=== PATIENT | female | born 1995 | race Two or more races ===

== ENCOUNTER 2019-05-30 05:49 | Emergency (ER) | payer BC ==
[2019-05-30] MEDS ORDERED: ACETAMINOPHEN 325 MG TABLET PO ONE (06:45)
--- NOTE | 2019-05-30 08:24 | ER Document Report ---
HPI - HPI Patient complains to provider of: Flu symptoms Time Seen by Provider: 05/30/19 08:09 Onset: This morning Onset/Duration: Gradual Quality of pain: Achy Pain Level: 4 Context: Patient presents complaining of flulike symptoms that started this morning. Patient reports cough congestion sore throat. Patient reports fever of 100.4 at home today. Associated Symptoms: Nonproductive cough, Fever, Rhinnorhea, Sore throat Exacerbated by: Denies Relieved by: Denies Similar symptoms previously: No Recently seen / treated by doctor: No - ROS ROS below otherwise negative: Yes Systems Reviewed and Negative: Yes All other systems reviewed and negative - CONSTITUTIONAL Constitutional: REPORTS: Fever - EENT EENT: REPORTS: Sore Throat, Nasal Drainage-Clear, Congestion - CARDIOVASCULAR Cardiovascular: DENIES: Chest pain - RESPIRATORY Respiratory: REPORTS: Coughing - GASTROINTESTINAL Gastrointestinal: DENIES: Nausea, Patient vomiting, Diarrhea - DERM Skin Color: Normal Skin Problems: None Past Medical History - General Information source: Patient - Social History Smoking Status: Never Smoker Frequency of alcohol use: Rare Occupation: Retail Family History: Reviewed & Not Pertinent Patient has suicidal ideation: No Patient has homicidal ideation: No - Medical History Medical History: Other - Thalassemia Past Surgical History: Reports: Hx Tonsillectomy Vertical Provider Document - CONSTITUTIONAL Agree With Documented VS: Yes Exam Limitations: No Limitations General Appearance: WD/WN, No Apparent Distress - INFECTION CONTROL TRAVEL OUTSIDE OF THE [place] IN LAST 30 DAYS: No - HEENT HEENT: Atraumatic, Normocephalic. negative: Pharyngeal Exudate, Pharyngeal Tenderness, Pharyngeal Erythema, Tympanic Membrane Red, Tympanic Membrane Bulging Notes: clear rhinorrhea - NECK Neck: Normal Inspection, Supple. negative: Lymphadenopathy-Left, Lymphadenopathy-Right - RESPIRATORY Respiratory: Breath Sounds Normal, No Respiratory Distress, Chest Non-Tender - CARDIOVASCULAR Cardiovascular: Regular Rate, Regular Rhythm, No Murmur. negative: Tachycardia - GI/ABDOMEN Gastrointestinal: Abdomen Soft, Abdomen Non-Tender - BACK Back: Normal Inspection. negative: CVA Tenderness-Right, CVA Tenderness-Left - MUSCULOSKELETAL/EXTREMETIES Musculoskeletal/Extremeties: MAEW - NEURO Level of Consciousness: Awake, Alert, Appropriate Motor/Sensory: No Motor Deficit - DERM Integumentary: Warm, Dry, No Rash Course - Re-evaluation Re-evalutation: 05/30/19 08:22 Patient presents with flulike symptoms at this time. Patient agreeable with deferring any testing at this time. Patient would like prescription for Tamiflu. Discussed efficacy and side effect profile this medication. Good return precautions discussed - Vital Signs Vital signs: Temp Pulse Resp BP Pulse Ox 98.4 F 119 H 16 114/69 100 05/30/19 07:55 05/30/19 06:12 05/30/19 06:12 05/30/19 06:12 05/30/19 06:12 Discharge - Discharge Clinical Impression: Flu-like symptoms Condition: Stable Disposition: HOME, SELF-CARE Instructions: Acetaminophen, Influenza ([facility]) Additional Instructions: Return immediately for any new or worsening symptoms Followup with your primary care provider, call tomorrow to make a followup appointment Prescriptions: Guaifenesin/Pseudoephedrne HCl [Mucinex D ER 1,200-120 mg Tab] 1 each PO Q12 PRN #12 tab.er.12h PRN Reason: Naproxen [Naprosyn 250 Nmg Tablet] 1 tab PO BID #14 tablet Oseltamivir Phosphate [Tamiflu 75 mg Capsule] 75 mg PO BID #10 capsule Forms: Return to Work Referrals: [facility] [Provider Group] - Follow up as needed
[2019-05-30 08:34] VITALS: BP 105/61
== END 2019-05-30 08:34 | disposition home or self-care (01) ==
LOC: ER 05:49
DX: R05 Cough (principal); J02.9 Acute pharyngitis, unspecified; J34.89 Other specified disorders of nose and nasal sinuses; R50.9 Fever, unspecified
CPT/HCPCS: 99283

== ENCOUNTER 2019-07-18 19:42 | Emergency (ER) | payer BC ==
--- NOTE | 2019-07-18 20:47 | ER Document Report ---
ED Medical Screen (RME) - General Chief Complaint: Vomiting Stated Complaint: VOMITING Time Seen by Provider: 07/18/19 20:43 Mode of Arrival: Ambulatory Information source: Patient Notes: 23-year-old female presents to ED for complaint of low back pain with sciatica down the left for about 2 weeks. She states the nausea and vomiting since morning. Last menstrual cycle started Thursday. She drinks socially no drugs no cigarette. Patient is alert oriented respirations regular nonlabored speaking in full sentences. She has been taking ibuprofen for her sciatica her last dose was 3 days ago. Patient is alert oriented respirations regular nonlabored speaking in full sentences. I have greeted and performed a rapid initial assessment of this patient. A comprehensive ED assessment and evaluation of the patient, analysis of test results and completion of medical decision making process will be conducted by an additional ED providers. TRAVEL OUTSIDE OF THE [place] IN LAST 30 DAYS: No - Related Data Allergies/Adverse Reactions: No Known Allergies Allergy (Verified 05/30/19 06:45) Past Medical History Past Surgical History: Reports: Hx Tonsillectomy Physical Exam - Vital signs Vitals: Temp Pulse Resp BP Pulse Ox 98.9 F 113 H 20 117/61 100 07/18/19 19:49 07/18/19 19:49 07/18/19 19:49 07/18/19 19:49 07/18/19 19:49 Course - Vital Signs Vital signs: Temp Pulse Resp BP Pulse Ox 98.9 F 113 H 20 117/61 100 07/18/19 19:49 07/18/19 19:49 07/18/19 19:49 07/18/19 19:49 07/18/19 19:49
[2019-07-18] MEDS ORDERED: ONDANSETRON 4 MG TAB.RAPDIS PO ONE (20:48)
[2019-07-18] MEDS ORDERED: NORMAL SALINE 1000 ML 1,000 ML IV ONE (20:48)
[2019-07-18 21:27] LABS: HEMATOCRIT 33.8 % (36.0-47.0); HEMOGLOBIN 11.1 g/dL (12.0-15.5); MEAN CORPUSCULAR HEMOGLOBIN 20.9 pg (27.0-33.4); MEAN CORPUSCULAR HGB CONC 32.7 g/dL (32.0-36.0); PLATELET COUNT 372 10^3/uL (150-450); RED BLOOD COUNT 5.29 10^6/uL (3.72-5.28); RED CELL DISTRIBUTION WIDTH 16.3 % (11.5-14.0); WHITE BLOOD COUNT 11.5 10^3/uL (4.0-10.5)
[2019-07-18 21:35] LABS: APPEARANCE,URINE SLIGHTLY-CLOUDY; BILIRUBIN,URINE NEGATIVE (NEGATIVE); COLOR,URINE YELLOW; GLUCOSE, URINE NEGATIVE (NEGATIVE); KETONES,URINE 20 mg/dL (NEGATIVE); PROTEIN,URINE NEGATIVE (NEGATIVE); URINE SPECIFIC GRAVITY 1.025; UROBILINOGEN,URINE NEGATIVE mg/dL (<2.0)
[2019-07-18 21:40] LABS: ALBUMIN 4.6 g/dL (3.5-5.0); ALKALINE PHOSPHATASE 72 U/L (38-126); ANION GAP 10 (5-19); ASPARTATE AMINO TRANSFERASE 25 U/L (14-36); BILIRUBIN,TOTAL 1.7 mg/dL (0.2-1.3); BLOOD UREA NITROGEN 12 mg/dL (7-20); CARBON DIOXIDE 24 mmol/L (22-30); CHLORIDE 100 mmol/L (98-107); GLUCOSE 109 mg/dL (75-110); TOTAL PROTEIN 7.8 g/dL (6.3-8.2)
[2019-07-18 21:47] LABS: MEAN CORPUSCULAR VOLUME 64 fl (80-97)
[2019-07-18 21:49] LABS: ABSOLUTE LYMPHOCYTES# (MANUAL) 0.6 10^3/uL (0.5-4.7); BASOPHILS % (MANUAL) 0 % (0-2); EOSINOPHILS % (MANUAL) 0 % (0-6); LYMPHOCYTES % (MANUAL) 5 % (13-45); MONOCYTES % (MANUAL) 0 % (3-13); SEGMENTED NEUTROPHILS % (MAN) 95 % (42-78); TOTAL CELLS COUNTED 100
[2019-07-18 21:54] LABS: TOXIC GRANULATION 1+
[2019-07-18 21:55] LABS: ANISOCYTOSIS 1+; HYPOCHROMASIA 1+; OVALOCYTES 1+; PLATELET COMMENT ADEQUATE; POIKILOCYTOSIS 2+; SCHISTOCYTES SLIGHT; TARGET CELLS SLIGHT; TEAR DROP CELLS SLIGHT
--- NOTE | 2019-07-18 23:14 | ER Document Report ---
ED GI/ - General Chief Complaint: Vomiting Stated Complaint: VOMITING Time Seen by Provider: 07/18/19 20:43 Mode of Arrival: Ambulatory Notes: CHIEF COMPLAINT: Abdominal pain nausea vomiting as well as sciatica HPI: 23-year-old female presenting to the emergency department with multiple complaints. Patient states that she has had sciatic symptoms down the left leg for 2 weeks. 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 States the pain seems to start in the left gluteal region and radiates down the lateral left thigh to the level of the knee occasional numbness and tingling. No incontinence of urine or bowel. No definitive injury but states that she is constantly moving in the gym so she may have hurt something in the back. Patient states that today she developed abdominal pain with nausea vomiting and diarrhea. No fever. No dysuria. St ates the pain seems to be around the umbilicus. Had 6 or 7 episodes of vomiting 2 or 3 episodes of diarrhea. ROS: See HPI - all other systems were reviewed and are otherwise negative Constitutional: no fever Eyes: no drainage, no blurred vision ENT: no runny nose, no sore throat Cardiovascular: no chest pain Resp: no SOB, no cough GI: Positive vomiting, positive diarrhea, positive abdominal pain : no dysuria Integumentary: no rash Allergy: no hives Musculoskeletal: no extremity pain or swelling, positive back pain Neurological: no numbness/tingling, no weakness MEDICATIONS: I agree with the patient medications as charted by the RN. ALLERGIES: I agree with the allergies as charted by the RN. PAST MEDICAL HISTORY/PAST SURGICAL HISTORY: Reviewed and agree as charted by RN. SOCIAL HISTORY: Reviewed and agree as charted by RN. FAMILY HISTORY: No significant familial comorbid conditions directly related to patient complaint EXAM: Reviewed vital signs as charted by RN. CONSTITUTIONAL: Alert and oriented and responds appropriately to questions. Well-appearing; well-nourished, mild distress secondary to discomfort HEAD: Normocephalic; atraumatic EYES: PERRL; Conjunctivae clear, sclerae non-icteric ENT: normal nose; no rhinorrhea; moist mucous membranes; pharynx without lesions noted, no uvula edema or deviation, no tonsillar hypertrophy, phonation normal NECK: Supple without meningismus; non-tender; no cervical lymphadenopathy, no masses CARD: RRR; no murmurs, no clicks, no rubs, no gallops; symmetric distal pulses RESP: Normal chest excursion without splinting or tachypnea; breath sounds clear and equal bilaterally; no wheezes, no rhonchi, no rales, pulse oximetry 98% on room air not hypoxic ABD/GI: Normal bowel sounds; non-distended; soft, mild tenderness in the right upper quadrant on palpation. There is mild tenderness in the right lower and left lower quadrants on palpation but it is more focal in the right periumbilical region, no rebound, no guarding; no palpable organomegaly or masses. BACK: The back appears normal and is non-tender to palpation, there is no CVA tenderness EXT: Normal ROM in all joints; non-tender to palpation; no cyanosis, no ef fusions, no edema SKIN: Normal color for age and race; warm; dry; good turgor; no acute lesions n oted NEURO: Moves all extremities equally; Motor and sensory function intact PSYCH: The patient's mood and manner are appropriate. Grooming and personal hygiene are appropriate. MDM: 23-year-old female with sciatic symptoms for 2 weeks. No definitive back injury. Patient has had nausea vomiting diarrhea with abdominal pain today. She does have pain in the right lower quadrant, has no history of abdominal surgeries. Has mild leukocytosis of 11.5. Will obtain CT to evaluate for appendicitis. TRAVEL OUTSIDE OF THE [place] IN LAST 30 DAYS: No - Related Data Allergies/Adverse Reactions: No Known Allergies Allergy (Verified 07/18/19 20:45) Home Medications: denies Past Medical History - General Information source: Patient - Social History Smoking Status: Never Smoker Chew tobacco use (# tins/day): No Frequency of alcohol use: Social Drug Abuse: None Family History: Reviewed & Not Pertinent Patient has suicidal ideation: No Patient has homicidal ideation: No Past Surgical History: Reports: Hx Tonsillectomy Physical Exam - Vital signs Vitals: Temp Pulse Resp BP Pulse Ox 98.9 F 113 H 20 117/61 100 07/18/19 19:49 07/18/19 19:49 07/18/19 19:49 07/18/19 19:49 07/18/19 19:49 Course - Re-evaluation Re-evalutation: 07/19/19 03:00 CT imaging does not show acute emergent abnormalities likely a viral process plus sciatica. Will give patient a dose of Decadron through the IV given her nausea issues. Will discharge on Zofran, prednisone, orthopedic referral - Vital Signs Vital signs: Temp Pulse Resp BP Pulse Ox 99.9 F 110 H 18 119/66 98 07/18/19 21:49 07/18/19 21:49 07/18/19 21:49 07/18/19 21:49 07/18/19 21:49 - Laboratory Result Diagrams: 07/18/19 20:53 07/18/19 20:53 Laboratory results interpreted by me: 07/18/19 07/18/19 07/18/19 20:28 20:53 20:53 WBC 11.5 H RBC 5.29 H Hgb 11.1 L Hct 33.8 L MCV 64 L MCH 20.9 L RDW 16.3 H Seg Neuts % (Manual) 95 H Lymphocytes % (Manual) 5 L Monocytes % (Manual) 0 L Abs Neuts (Manual) 10.9 H Abs Monocytes (Manual) 0.0 L Sodium 134.1 L Total Bilirubin 1.7 H Urine Ketones 20 H Urine Blood LARGE H Discharge - Discharge Clinical Impression: Vomiting and diarrhea, Sciatica, left side Condition: Stable Disposition: HOME, SELF-CARE Instructions: Sciatica ([facility]), Vomiting ([facility]) Additional Instructions: Hydrate well at home. Take prednisone as prescribed. Take Zofran for nausea vomiting. Your CT imaging study did not show evidence of appendicitis or other acute emergent abnormalities. Follow-up closely with orthopedics for further evaluation and treatment of the sciatic symptoms call for appointment Prescriptions: Prednisone [Deltasone 20 mg Tablet] 2 tab PO DAILY 5 Days #10 tablet Ondansetron [Zofran Odt 4 mg Tablet] 1 - 2 tab PO Q4H PRN #15 tab.rapdis PRN Reason: For Nausea/Vomiting Referrals: GISSEL CHRISTINA DO [ACTIVE STAFF] - Follow up as needed
--- NOTE | 2019-07-19 02:37 | RADIOLOGY REPORT (SQ) ---
EXAM DESCRIPTION: CT ABDOMEN PELVIS WITH IV CONTRAST COMPLETED DATE/TME: 07/19/2019 00:00 CLINICAL HISTORY: RLQ pain. HCG NEG COMPARISON: None Available. TECHNIQUE: CT of the abdomen and pelvis performed following IV administration of 57 mL of Omnipaque 350. FINDINGS: Lung Bases: The visualized lung bases are clear. Bones: No destructive bone lesions identified. Abdomen: Liver: The liver has normal size and density. No intrahepatic mass or biliary dilatation. Gallbladder: No calcified gallstones. Spleen, Pancreas, and Adrenal Glands: The spleen, pancreas, and adrenal glands are unremarkable. Kidneys: The kidneys have normal size without evidence of solid mass or hydronephrosis. Vasculature: The aorta and IVC have normal caliber and position. The portal vein is patent. The proximal visceral and renal arteries are patent. Stomach: The stomach and duodenum have normal course. Other: No free intraperitoneal air. Trace free fluid. Pelvis: Bladder: Urinary bladder is unremarkable. Bowel: No dilated loops of large or small bowel. Appendix: The appendix is not well visualized. No definite evidence of acute appendicitis. Pelvis: Uterus is not enlarged. IMPRESSION: 1. Trace free pelvic fluid. This may be physiologic. 2. No other acute process identified. This exam was performed according to our departmental dose-optimization program, which includes automated exposure control, adjustment of the mA and/or kV according to patient size and/or use of iterative reconstruction technique.
[2019-07-19] MEDS ORDERED: DEXAMETHASONE SOD PHOS INJ 10 MG/1 ML VIAL IV ONE (03:00)
[2019-07-19 03:50] VITALS: BP 124/73
== END 2019-07-19 03:50 | disposition home or self-care (01) ==
LOC: ER 19:42
DX: M54.32 Sciatica, left side (principal); R11.2 Nausea with vomiting, unspecified; R19.7 Diarrhea, unspecified; M79.652 Pain in left thigh; R10.33 Periumbilical pain; R10.31 Right lower quadrant pain; R10.32 Left lower quadrant pain
CPT/HCPCS: 36415; 83690; 84703; 85025; 80053; 81001; 74177; S0119; J7030; J1100; 96361; 96374; 99284